=== PATIENT | female | born 1975 | race African-American/Black ===

== ENCOUNTER 2016-12-06 16:08 | Emergency (ER) | payer MEDICAID ==
[~2016-12-06] VITALS: Ht 177.8 cm; Wt 70.0 kg
[2016-12-06] MEDS ORDERED: DEXAMETHASONE 10MG/ML 1ML VIAL IM ONE (20:30)
[2016-12-06 21:48] VITALS: BP 100/69
== END 2016-12-06 21:54 | disposition home or self-care (01) ==
LOC: ER 20:16
DX: J04.0 Acute laryngitis (principal)
CPT/HCPCS: 71010; 81025; 87070; 87430; 87804; 99285; Z7610; J1100

== ENCOUNTER 2017-07-23 06:10 | Emergency (ER) | payer MEDICAID ==
[~2017-07-23] VITALS: Ht 167.6 cm; Wt 59.0 kg
[2017-07-23] MEDS ORDERED: MORPHINE SULFATE 10 MG/ML CPJ IM ONE (07:45)
[2017-07-23] MEDS ORDERED: KETOROLAC 30MG/ML VIAL IM ONE (09:30)
[2017-07-23 10:26] VITALS: BP 106/64
== END 2017-07-23 10:29 | disposition home or self-care (01) ==
LOC: ER 06:43
DX: K04.7 Periapical abscess without sinus (principal); F17.200 Nicotine dependence, unspecified, uncomplicated
CPT/HCPCS: 96372; 99284; J1885; J2270